=== PATIENT | female | born 1990 | race African-American/Black ===

== ENCOUNTER 2017-06-09 03:59 | Observation (INO) | payer MEDICAID ==
[2017-06-09] MEDS ORDERED: PREN-88 PO (05:41)
[2017-06-09 06:09] LABS: CLARITY URINE CLOUDY (CLEAR); COLOR URINE YELLOW (YELLOW); GLUCOSE URINE NEGATIVE (NEGATIVE); KETONES URINE NEGATIVE (NEGATIVE); LEUKOCYTE ESTERASE URINE TRACE (NEGATIVE); NITRITE URINE NEGATIVE (NEGATIVE); OCCULT BLOOD URINE NEGATIVE (NEGATIVE); PH URINE 8.5 (4.5-8.0); PROTEIN URINE NEGATIVE (NEGATIVE); SPECIFIC GRAVITY URINE 1.012 (1.005-1.030); UROBILINOGEN URINE 0.2 E.U./dL (0.2-1.0)
[2017-06-09] MEDS ORDERED: LACTATED RINGERS 1,000 ML IV SCH (07:00)
== END 2017-06-09 08:00 | disposition home or self-care (01) ==
LOC: L&D 03:59
PROVIDERS: ADMIT Specialist; ATTEND Specialist
DX: O26.893 Other specified pregnancy related conditions, third trimester (principal); R10.9 Unspecified abdominal pain; M54.5 Low back pain; Z3A.34 34 weeks gestation of pregnancy
CPT/HCPCS: 81001; 96360; G0378; J7120; 96361; 99281

== ENCOUNTER 2019-01-29 02:28 | Emergency (ER) | payer BC, MEDICAID ==
[~2019-01-29] VITALS: Ht 162.6 cm; Wt 54.9 kg
[~2019-01-29 02:28] MED LIST: PREN-88 PO
[2019-01-29] MEDS ORDERED: ONDANSETRON HCL 4MG/2ML INJ IV STA (03:24)
[2019-01-29] MEDS ORDERED: SODIUM CHLORIDE 0.9% 1,000 ML IV ONE (03:24)
[2019-01-29] MEDS ORDERED: MORPHINE SULFATE 4 MG/ML CPJ (NOT FOR IM USE) IV STA (03:24)
[2019-01-29 04:13] LABS: BASOPHILS % 2.5 % (0.0-2.0); CHLORIDE 110 mEq/L (98-107); EOSINOPHILS % 2.5 % (0.0-5.0); HEMATOCRIT. 36.1 % (36.0-48.0); HEMOGLOBIN. 12.2 g/dL (12.0-16.0); MEAN CORPUSCULAR HEMOGLOBIN 28.5 pg (28.0-32.0); MEAN CORPUSCULAR VOLUME 84.4 fL (81.0-99.0); MEAN PLATELET VOLUME 9.1 fl (7.4-10.4); PLATELET 198 x1000/uL (130-400); RED BLOOD CELL COUNT 4.28 mill/uL (4.2-5.4)
[2019-01-29 04:15] LABS: CLARITY URINE TURBID (CLEAR); COLOR URINE YELLOW (YELLOW); KETONES URINE NEGATIVE (NEGATIVE); LEUKOCYTE ESTERASE URINE NEGATIVE (NEGATIVE); NITRITE URINE NEGATIVE (NEGATIVE); OCCULT BLOOD URINE NEGATIVE (NEGATIVE); PROTEIN URINE NEGATIVE (NEGATIVE); UROBILINOGEN URINE 0.2 E.U./dL (0.2-1.0)
[2019-01-29 05:45] VITALS: BP 121/79
== END 2019-01-29 05:46 | disposition home or self-care (01) ==
LOC: ER 02:28
DX: K80.20 Calculus of gallbladder without cholecystitis without obstruction (principal); F41.9 Anxiety disorder, unspecified; J45.909 Unspecified asthma, uncomplicated
CPT/HCPCS: 36415; 76705; 80053; 81003; 81025; 83690; 85025; 96361; 96374; 96375; 99284; J2270; J2405; J7030; Z7610

== ENCOUNTER 2019-04-02 07:48 | Emergency (ER) | payer BC, MEDICAID ==
[~2019-04-02] VITALS: Ht 167.6 cm; Wt 55.0 kg
[2019-04-02] MEDS ORDERED: ONDANSETRON HCL 4MG/2ML INJ IV ONE (08:45)
[2019-04-02] MEDS ORDERED: MORPHINE SULFATE 4 MG/ML CPJ (NOT FOR IM USE) IV ONE ×2 (08:45→10:30)
[2019-04-02 08:56] LABS: BASOPHILS % 0.5 % (0.0-2.0); HEMATOCRIT. 38.5 % (36.0-48.0); HEMOGLOBIN. 12.7 g/dL (12.0-16.0); MEAN CORPUSCULAR HEMOGLOBIN 27.9 pg (28.0-32.0); MEAN CORPUSCULAR VOLUME 84.6 fL (81.0-99.0); MEAN PLATELET VOLUME 9.2 fl (7.4-10.4); MONOCYTES % 5.5 % (2.0-8.0); PLATELET 189 x1000/uL (130-400); RED BLOOD CELL COUNT 4.55 mill/uL (4.2-5.4); RED CELL DISTRIBUTION WIDTH 13.8 % (11.6-14.6)
[2019-04-02 09:03] LABS: CHLORIDE 108 mEq/L (98-107)
[2019-04-02 09:06] LABS: INR 1.1; PROTHROMBIN TIME 11.5 sec (9.6-11.0)
[2019-04-02 09:59] LABS: CLARITY URINE CLEAR (CLEAR); COLOR URINE YELLOW (YELLOW); KETONES URINE NEGATIVE (NEGATIVE); LEUKOCYTE ESTERASE URINE NEGATIVE (NEGATIVE); NITRITE URINE NEGATIVE (NEGATIVE); OCCULT BLOOD URINE NEGATIVE (NEGATIVE); PH URINE 5.5 (4.5-8.0); PROTEIN URINE NEGATIVE (NEGATIVE); SPECIFIC GRAVITY URINE 1.025 (1.005-1.030); UROBILINOGEN URINE 0.2 E.U./dL (0.2-1.0)
[2019-04-02] MEDS ORDERED: IOHEXOL-300 100 ML BOTTLE ONE (11:05)
[2019-04-02 12:12] VITALS: BP 120/76
== END 2019-04-02 12:16 | disposition home or self-care (01) ==
LOC: ER 07:48
DX: K59.00 Constipation, unspecified (principal); Z90.49 Acquired absence of other specified parts of digestive tract; R03.0 Elevated blood-pressure reading, without diagnosis of hypertension; G89.18 Other acute postprocedural pain
CPT/HCPCS: 36415; 71045; 74018; 74177; 80053; 81003; 81025; 83690; 85025; 85610; 96374; 96375; 96376; 99284; J2270; J2405; Q9967

== ENCOUNTER 2019-07-05 16:18 | Emergency (ER) | payer MEDICAID ==
[~2019-07-05] VITALS: Ht 162.6 cm; Wt 57.0 kg
[2019-07-05] MEDS ORDERED: SODIUM CHLORIDE 0.9% 1,000 ML IV ONE (16:49)
[2019-07-05] MEDS ORDERED: ONDANSETRON HCL 4MG/2ML INJ IV STA (16:49)
[2019-07-05] MEDS ORDERED: FAMOTIDINE 20MG/2ML VIAL IV STA (16:49)
[2019-07-05] MEDS ORDERED: KETOROLAC 30MG/ML VIAL IV STA (16:49)
[2019-07-05 17:06] LABS: BASOPHILS % 0.6 % (0.0-2.0); EOSINOPHILS % 0.7 % (0.0-5.0); HEMATOCRIT. 37.4 % (36.0-48.0); HEMOGLOBIN. 12.5 g/dL (12.0-16.0); LYMPHOCYTES % 8.6 % (20.0-50.0); MEAN CORPUSCULAR HEMOGLOBIN 28.2 pg (28.0-32.0); MEAN CORPUSCULAR VOLUME 84.4 fL (81.0-99.0); MEAN PLATELET VOLUME 8.7 fl (7.4-10.4); MONOCYTES % 5.3 % (2.0-8.0); NEUTROPHILS % 84.8 % (40.0-76.0); PLATELET 224 x1000/uL (130-400); RED BLOOD CELL COUNT 4.43 mill/uL (4.2-5.4); RED CELL DISTRIBUTION WIDTH 13.7 % (11.6-14.6)
[2019-07-05 17:13] LABS: CHLORIDE 109 mEq/L (98-107); PROTHROMBIN TIME 10.8 sec (9.6-11.0)
[2019-07-05 17:16] LABS: HCG SCREEN NEGATIVE
[2019-07-05] MEDS ORDERED: IOHEXOL-300 100 ML BOTTLE ONE (18:36)
[2019-07-05 18:40] VITALS: BP 110/68
[2019-07-05 18:45] LABS: CLARITY URINE CLEAR (CLEAR); COLOR URINE YELLOW (YELLOW); KETONES URINE 1+ (NEGATIVE); LEUKOCYTE ESTERASE URINE NEGATIVE (NEGATIVE); NITRITE URINE NEGATIVE (NEGATIVE); OCCULT BLOOD URINE 3+ (NEGATIVE); PROTEIN URINE NEGATIVE (NEGATIVE); SPECIFIC GRAVITY URINE 1.068 (1.005-1.030)
[2019-07-05] MEDS ORDERED: ACETAMINOPHEN 325MG TABLET PO ONE (18:45)
== END 2019-07-05 19:23 | disposition left against medical advice (07) ==
LOC: ER 16:20
DX: R10.31 Right lower quadrant pain (principal); R10.33 Periumbilical pain; J45.909 Unspecified asthma, uncomplicated; R11.2 Nausea with vomiting, unspecified; Z90.49 Acquired absence of other specified parts of digestive tract
CPT/HCPCS: 36415; 74177; 80053; 81003; 81025; 83605; 83690; 84703; 85025; 85610; 96361; 96374; 96375; 99284; J1885; J2405; J3490; J7030; Q9967

== ENCOUNTER 2022-10-17 08:41 | Emergency (ER) | payer MEDICAID, OTHER ==
[~2022-10-17] VITALS: Ht 162.6 cm; Wt 57.0 kg
[2022-10-17 08:50] VITALS: BP 96/61
[2022-10-17] MEDS ORDERED: MAGNESIUM/ALUMINUM HYDROXIDE/SIMETHICONE 30ML UDC PO STA (09:21)
[2022-10-17] MEDS ORDERED: ONDANSETRON HCL 4MG/2ML INJ IV STA (09:21)
[2022-10-17] MEDS ORDERED: DICYCLOMINE 10 MG/5 ML ORAL SYR PO STA (09:21)
[2022-10-17] MEDS ORDERED: VISCOUS LIDOCAINE 2% 15 ML UDC PO STA (09:21)
[2022-10-17] MEDS ORDERED: SODIUM CHLORIDE 0.9% 1,000 ML IV ONE (09:30)
[2022-10-17] MEDS ORDERED: PYRIDOXINE HCL 50MG TABLET PO ONE (09:30)
[2022-10-17 10:10] LABS: BASOPHILS % 0.9 % (0.0-2.0); EOSINOPHILS % 1.7 % (0.0-5.0); HEMATOCRIT. 27.7 % (36.0-48.0); HEMOGLOBIN. 9.3 g/dL (12.0-16.0); LYMPHOCYTES % 11.4 % (20.0-50.0); MEAN CORPUSCULAR HEMOGLOBIN 28.1 pg (28.0-32.0); MEAN CORPUSCULAR VOLUME 83.7 fL (81.0-99.0); MEAN PLATELET VOLUME 8.7 fl (7.4-10.4); MONOCYTES % 5.3 % (2.0-8.0); NEUTROPHILS % 80.7 % (40.0-76.0); PLATELET 201 x1000/uL (130-400); RED CELL DISTRIBUTION WIDTH 14.1 % (11.6-14.6)
[2022-10-17 10:15] LABS: CHLORIDE 107 mEq/L (98-107)
[2022-10-17 12:16] LABS: CLARITY URINE CLOUDY (CLEAR); COLOR URINE YELLOW (YELLOW); KETONES URINE NEGATIVE (NEGATIVE); LEUKOCYTE ESTERASE URINE NEGATIVE (NEGATIVE); NITRITE URINE NEGATIVE (NEGATIVE); OCCULT BLOOD URINE NEGATIVE (NEGATIVE); PH URINE 7.5 (4.5-8.0); PROTEIN URINE NEGATIVE (NEGATIVE); SPECIFIC GRAVITY URINE 1.013 (1.005-1.030); UROBILINOGEN URINE 0.2 E.U./dL (0.2-1.0)
[2022-10-17 12:24] LABS: BETA HYDROXYBUTYRATE 0.1 mMol/L (0.0-0.3)
== END 2022-10-17 13:12 | disposition home or self-care (01) ==
LOC: ER 08:41
DX: O26.892 Other specified pregnancy related conditions, second trimester (principal); R10.13 Epigastric pain; Z3A.15 15 weeks gestation of pregnancy
CPT/HCPCS: 36415; 76805; 80053; 81003; 82010; 83690; 84702; 85025; 96361; 96374; 99284; J2405; J7030

== ENCOUNTER 2022-10-31 19:08 | Emergency (ER) | payer MEDICAID, OTHER ==
[~2022-10-31] VITALS: Ht 162.6 cm; Wt 58.0 kg
[2022-10-31 19:53] VITALS: BP 100/58
[2022-10-31] MEDS ORDERED: ACETAMINOPHEN 325MG TABLET PO ONE (21:30)
[2022-10-31 22:11] LABS: EOSINOPHILS % 1.7 % (0.0-5.0); HEMATOCRIT. 26.7 % (36.0-48.0); MEAN CORPUSCULAR HEMOGLOBIN 28.5 pg (28.0-32.0); MEAN CORPUSCULAR VOLUME 84.2 fL (81.0-99.0); MEAN PLATELET VOLUME 8.7 fl (7.4-10.4); MONOCYTES % 7.2 % (2.0-8.0); NEUTROPHILS % 66.1 % (40.0-76.0); PLATELET 229 x1000/uL (130-400); RED BLOOD CELL COUNT 3.17 mill/uL (4.2-5.4); RED CELL DISTRIBUTION WIDTH 14.2 % (11.6-14.6)
[2022-10-31 22:17] LABS: CHLORIDE 107 mEq/L (98-107); PROTHROMBIN TIME 10.4 sec (9.6-11.0)
[2022-10-31 22:39] LABS: B-HCG QUANTITATIVE 8961 mIU/mL (<3)
== END 2022-11-01 00:15 | disposition home or self-care (01) ==
LOC: ER 19:08
DX: O26.852 Spotting complicating pregnancy, second trimester (principal); O26.892 Other specified pregnancy related conditions, second trimester; R10.9 Unspecified abdominal pain; Z3A.17 17 weeks gestation of pregnancy
CPT/HCPCS: 36415; 76805; 80053; 84702; 85025; 86850; 86900; 99284

== ENCOUNTER 2022-12-18 16:04 | Observation (INO) | payer MEDICAID, OTHER ==
[~2022-12-18] VITALS: Ht 157.5 cm; Wt 68.0 kg
[2022-12-18] MEDS ORDERED: METOCLOPRAMIDE HCL 10MG/2ML VIAL IV ONE (17:15)
[2022-12-18 18:04] LABS: BASOPHILS % 0.4 % (0.0-2.0); EOSINOPHILS % 0.3 % (0.0-5.0); HEMATOCRIT. 30.8 % (36.0-48.0); HEMOGLOBIN. 10.4 g/dL (12.0-16.0); LYMPHOCYTES % 13.5 % (20.0-50.0); MEAN CORPUSCULAR HEMOGLOBIN 28.9 pg (28.0-32.0); MEAN CORPUSCULAR VOLUME 85.4 fL (81.0-99.0); MEAN PLATELET VOLUME 9.3 fl (7.4-10.4); MONOCYTES % 5.9 % (2.0-8.0); NEUTROPHILS % 79.9 % (40.0-76.0); PLATELET 209 x1000/uL (130-400); RED CELL DISTRIBUTION WIDTH 13.5 % (11.6-14.6)
[2022-12-18 18:15] LABS: CHLORIDE 102 mEq/L (98-107)
[2022-12-18] MEDS ORDERED: SODIUM CHLORIDE 0.9% 1,000 ML IV ONE (18:30)
[2022-12-18] MEDS ORDERED: POTASSIUM CHLORIDE 20MEQ/PACKET PO NR (18:30)
[2022-12-18 18:41] LABS: B-HCG QUANTITATIVE 7630 mIU/mL (<3)
[2022-12-18 20:00] VITALS: BP 98/62
== END 2022-12-18 23:46 | disposition home or self-care (01) ==
LOC: ER 16:04 → 8 EST LDRP 20:20
PROVIDERS: ADMIT Obstetrics & Gynecology; ATTEND Obstetrics & Gynecology
DX: O21.2 Late vomiting of pregnancy (principal); O99.282 Endocrine, nutritional and metabolic diseases complicating pregnancy, second trimester; E87.6 Hypokalemia; O99.512 Diseases of the respiratory system complicating pregnancy, second trimester; J45.909 Unspecified asthma, uncomplicated; Z86.32 Personal history of gestational diabetes; Z3A.23 23 weeks gestation of pregnancy; Z79.899 Other long term (current) drug therapy
CPT/HCPCS: 36415; 76805; 80053; 82962; 83690; 84702; 85025; 96374; J2765; 99281; G0378

== ENCOUNTER 2024-01-09 21:06 | Emergency (ER) | payer MEDICAID, OTHER ==
[~2024-01-09] VITALS: Ht 162.6 cm; Wt 58.0 kg
[2024-01-09 21:36] VITALS: TEMP 98; O2SAT 99
[2024-01-09] MEDS ORDERED: IBUP-2029 MT (23:59)
[2024-01-10] VITALS: BP 101/69; PULSE 90; RESP 18
[2024-01-10] MEDS: IBUPROFEN 600MG TABLET PO ONE
[2024-01-10] MEDS ORDERED: CYCL10TA21 MT (00:01)
== END 2024-01-10 01:15 | disposition home or self-care (01) ==
LOC: ER 21:06
DX: M54.9 Dorsalgia, unspecified (principal); M79.641 Pain in right hand; J45.909 Unspecified asthma, uncomplicated; Z98.890 Other specified postprocedural states
CPT/HCPCS: 29125; 73130; 99283